=== PATIENT | female | born 1995 | race Caucasian/White ===

== ENCOUNTER → 2016-09-25 | Day surgery (SDC) | payer OTHER ==
[2016-09-22 12:53] VITALS: BMI 33.5
[2016-09-25 11:03] VITALS: TEMP 97.8
[2016-09-25 11:12] LABS: INR 1.12 (0.82-1.09); PROTHROMBIN TIME (PATIENT) 12.3 SEC (9.98-11.88)
[2016-09-25 11:46] LABS: BASOPHIL 0.5 % (0-2.0); MCH 26.4 pg (25.7-33.7); MCHC 32.5 g/dl (32.0-36.0); MEAN CELL VOLUME 81.2 fl (80-96); MEAN PLT VOLUME 7.9 fl (7.5-11.1); NEUTROPHILS 58.4 % (42.8-82.8); PLATELET COUNT 380 K/MM3 (134-434); RDW 15.4 % (11.6-15.6); WHITE BLOOD COUNT 12.1 K/mm3 (4.0-10.0)
[2016-09-25 16:01] LABS: GLUCOSE,CSF 54 mg/dL (50-80)
[2016-09-25 16:49] VITALS: BP 103/72; PULSE 88
[2016-09-25 17:40] LABS: CSF COLOR COLORLESS
[2016-09-25 17:41] LABS: CSF APPEARANCE CLEAR; CSF RBC 0 /mm3
== END | disposition home or self-care (01) ==
LOC: JRADIR 10:07
PROVIDERS: ATTEND Psychiatry & Neurology Neurology
PROC: 009U3ZX Drainage of Spinal Canal, Percutaneous Approach, Diagnostic (ICD-10-PCS; principal; 2016-09-25)
PROC: 009Y3ZX Drainage of Lumbar Spinal Cord, Percutaneous Approach, Diagnostic (ICD-10-PCS; 2016-09-25)
DX: G44.89 Other headache syndrome (principal)
CPT/HCPCS: 36415; 62272; 76098-TC; 77002-TC; 82945; 84157; 84702; 85025; 85610; 87899; 89050

== ENCOUNTER 2016-09-27 13:27 | Emergency (ER) | payer OTHER ==
[2016-09-27 13:34] VITALS: BP 147/57; PULSE 90; TEMP 98; BMI 33.5
--- NOTE | 2016-09-27 14:47 | PDOC ---
History of Present Illness - General History Source: Patient Exam Limitations: No Limitations - History of Present Illness Initial Comments: 09/27/16 15:07 The patient is a 20 year old female, with a significant past medical history of IIH and OCD who presents to the emergency department with neck, back, and head pain. The patient was sent by her PMD for possible admission. The patient ranks her pain a 10/10 in pain intensity. She reports having a spinal tap (fluoro guided LP) on sunday secondary her IIH. The patient reports having no significant pain after the LP yesterday, with the development of constant head pain yesterday. She reports her pain now travels down her spine and into her head/back. She reports having chills and nausea due to the severity of the pain. She reports taking tylenol with no alleviation of her pain. She denies recent fevers, headache or dizziness. She denies recent vomit, diarrhea or constipation. She denies any recent travel. Allergies: NKA Past surgical history: None reported. Social history: Nonsmoker. Denies EtOH use and drug use. Primary Care Physician: <Qasim Nixon - Last Filed: 09/27/16 15:07> <Sunil Aleman - Last Filed: 09/27/16 16:50> - General Chief Complaint: Pain Stated Complaint: SENT BY PCP ADMISSION Time Seen by Provider: 09/27/16 14:46 Past History <Qasim Nixon - Last Filed: 09/27/16 15:07> - Past Medical History Anemia: Yes Cardiac Disorders: (MURMUR) GI Disorders: Yes (GERD) - Psycho/Social/Smoking Cessation Hx Anxiety: No Suicidal Ideation: No Smoking History: Never smoked Have you smoked in the past 12 months: No If you are a former smoker, when did you quit?: 6MONTHS AGO 'Breaking Loose' booklet given: 09/25/16 Hx Alcohol Use: No Drug/Substance Use Hx: No Substance Use Type: None <Sunil Aleman - Last Filed: 09/27/16 16:50> - Past Medical History Allergies/Adverse Reactions: Allergies Allergy/AdvReac Type Severity Reaction Status Date / Time No Known Drug Allergies Allergy Verified 09/27/16 13:34 Home Medications: Ambulatory Orders Butalb/Acetaminophen/Caffeine [Fioricet 50-300-40 mg Capsule] 1 - 2 cap PO QID PRN #30 capsule MDD 6 capsules 09/27/16 Review of Systems - Review of Systems Constitutional: Yes: Chills. No: Fever HEENTM: No: Recent change in vision, Double Vision Respiratory: No: Cough, Shortness of Breath Cardiac (ROS): No: Chest Pain ABD/GI: No: Nausea, Vomiting Musculoskeletal: Yes: Muscle Pain Neurological: Yes: Headache All Other Systems: Reviewed and Negative <Sunil Aleman - Last Filed: 09/27/16 16:50> *Physical Exam - Vital Signs Last Vital Signs Temp Pulse Resp BP Pulse Ox 98.0 F 90 20 147/57 98 09/27/16 13:31 09/27/16 13:31 09/27/16 13:31 09/27/16 13:31 09/27/16 13:31 - Physical Exam Comments: 09/27/16 15:08 GENERAL: The patient is awake, alert, and fully oriented, in no acute distress. HEAD: Normal with no signs of trauma. EYES: Pupils equal, round and reactive to light, extraocular movements intact, sclera anicteric, conjunctiva clear with no pallor. ENT: Ears normal, nares patent, oropharynx clear without exudates. Moist mucous membranes. No nystagmus. BACK: Incision site clean dry and intact. No erythema no active bleeding NECK: Normal range of motion, supple without lymphadenopathy, JVD, or masses. LUNGS: Breath sounds equal, clear to auscultation bilaterally. No wheeze/ crackles. HEART: Regular rate and rhythm, normal S1 and S2 without murmur or rub. ABDOMEN: Soft/nontender/nondistended. BS wnl. No guarding or rebound. No palpable masses. No hepatosplenomegaly. EXTREMITIES: Normal range of motion, no edema. No clubbing or cyanosis. No cords , erythema, or tenderness. PSYCH: Normal mood, normal affect. SKIN: Warm, Dry, normal turgor, no rashes or lesions noted. NEURO: Mental status: The patient is alert and oriented x3. Cranial nerves: Cranial nerves II through XII are intact Motor: The upper extremities are 5 over 5 in all muscle groups. The lower extremities are 5 over 5 in all muscle groups. No pronator drift. Sensation: Sensation is intact to light touch throughout. Cerebellar: Finger-finger- nose is normal in both upper extremities. Heel-knee- jacobo is normal in both lower extremities. Reflexes: 2+ and symmetric in the upper and lower extremities. Gait: Normal. Heel and toe walking are normal. Tandem gait is normal. <AndersonQasim Avilez - Last Filed: 09/27/16 15:07> - Vital Signs Last Vital Signs Temp Pulse Resp BP Pulse Ox 98.0 F 90 20 147/57 98 09/27/16 13:31 09/27/16 13:31 09/27/16 13:31 09/27/16 13:31 09/27/16 13:31 <Sunil Aleman - Last Filed: 09/27/16 16:50> ED Treatment Course - LABORATORY CBC & Chemistry Diagram: 09/27/16 15:50 09/27/16 15:50 <Sunil Aleman - Last Filed: 09/27/16 16:50> Medical Decision Making - Medical Decision Making 09/27/16 15:35 A portion of this note was documented by scribe services under my direction. I have reviewed the details of the note, within reason, and agree with the documentation with the following case summary and management plan written by me. Healthy 20y/o F with recent onset of headaches in the last few months, evaluated by ophtho and neuro Dr. Ruiz with normal CT and MRI imaging, s/p fluoro-guided LP 2d ago (uncomplicated, normal results in EMR) presents now sent by Dr. Ruiz with suspicion of post-LP headache. Pt with back pain ranging from neck to lower back, associated with chills, and also with diffuse [place] worse with standing/sitting up and relieved with lying flat. no photophobia, no n/v/fever. Afebrile Exam is nonfocal, neurologically intact, procedure site without evidence of infection or swelling or hematoma 20-year-old female 2 days status post lumbar puncture with positional headache and back pain. Neurologically intact, generally well-appearing, sent here for possible blood patch given suspicion for post LP headache. Will hydrate, trial Reglan. Discussed with Dr. Varela (performed procedure): agrees with involved Anesthesia. Discussed with Anesthesia, will evaluate the patient in the ER for blood patch. 09/27/16 16:31 Seen by anesthesia, pt and mother opt to defer blood patch at this time. Given fioricet and will attempt conservative management at home then return if symptoms persist. Remains neuro intact. Will review case with Dr. Ruiz, feels back pain is also very consistent with post-LP headache, and in the absence of focal findings does not need spine imaging. Still recommends blood patch strongly, so he is speaking to patient and mom now. 09/27/16 16:40 Patient still declining blood patch. Dr. Ruiz recommends d/c on fioricet and he will f/u with them as oupt. Understand return criteria. <Sunil Aleman - Last Filed: 09/27/16 16:50> *DC/Admit/Observation/Transfer - Attestations Scribe Attestion: 09/27/16 15:08 Documentation prepared by Qasim Nixon, acting as medical social consultant for Sunil Aleman MD. <Qasim Nixon - Last Filed: 09/27/16 15:07> <Sunil Aleman - Last Filed: 09/27/16 16:50> Diagnosis at time of Disposition: Post lumbar puncture headache - Discharge Dispostion Disposition: HOME Condition at time of disposition: Stable - Prescriptions Prescriptions: Butalb/Acetaminophen/Caffeine [Fioricet 50-300-40 mg Capsule] 1 - 2 cap PO QID PRN #30 capsule MDD 6 capsules PRN Reason: Headache - Referrals Referrals: Tino Leblanc MD [Primary Care Provider] - Ole Ruiz DO [Staff Physician] - - Patient Instructions Printed Discharge Instructions: DI for Post-Spinal Puncture Headache Additional Instructions: Activity as tolerated. Stay well hydrated. As discussed, your symptoms are most consistent with post lumbar puncture headache. Take Fioricet as prescribed as needed. If symptoms persist, the blood patch we discussed may be necessary, so return to the ED. Continue your medications as previously prescribed by your physician. You should follow up with Dr. Ruiz as soon as possible regarding today's emergency department visit. Return to the emergency department for any new or concerning symptoms, particularly persistent or worsening headache, fevers or chills, vomiting or confusion, focal weakness, redness or swelling at the puncture site.
[2016-09-27] MEDS ORDERED: METOCLOPRAMIDE HCL INJECTION 10 MG/2 ML VIAL IVPB ONE (15:08)
[2016-09-27] MEDS ORDERED: SODIUM CHLORIDE 1,000 ML IV ONE (15:08)
[2016-09-27] MEDS ORDERED: ACETAMINOPHEN 1000 MG/100 ML VIAL (NON FORMULARY) IVPB ONE (15:23)
[2016-09-27] MEDS ORDERED: METOCLOPRAMIDE HCL INJECTION 10 MG/2 ML VIAL ONE (15:38)
[2016-09-27] MEDS ORDERED: ACETAMINOPHEN INJECTION 100 ML IVPB ONE (15:38)
[2016-09-27] MEDS ORDERED: ACETAMINOPHEN/CAFFEINE/BUTALBITAL 1 TAB PO ONE (16:04)
[2016-09-27] MEDS ORDERED: LACTATED RINGERS SOLUTION 1,000 ML IV SCH (16:15)
[2016-09-27 16:20] LABS: BASOPHIL 0.4 % (0-2.0); EOSINOPHIL 0.6 % (0-4.5); MCH 26.8 pg (25.7-33.7); MCHC 33.1 g/dl (32.0-36.0); MEAN PLT VOLUME 7.9 fl (7.5-11.1); NEUTROPHILS 75.3 % (42.8-82.8); PLATELET COUNT 385 K/MM3 (134-434); RDW 15.1 % (11.6-15.6); WHITE BLOOD COUNT 10.7 K/mm3 (4.0-10.0)
[2016-09-27] MEDS ORDERED: ACETAMINOPHEN/CAFFEINE/BUTALBITAL 1 TAB ONE (16:22)
[2016-09-27 17:08] LABS: INR 1.13 (0.82-1.09); PROTHROMBIN TIME (PATIENT) 12.5 SEC (9.98-11.88)
[2016-09-27] MEDS ORDERED: LACTATED RINGERS SOLUTION 1,000 ML IV ONE (17:09)
[2016-09-27 17:18] LABS: ALBUMIN 3.4 g/dl (3.4-5.0); ALK PHOS 77 U/L (45-117); ANION GAP 10 (8-16); BILIRUBIN,TOTAL 0.4 mg/dL (0.2-1.0); CALCIUM 8.8 mg/dL (8.5-10.1); CO2 25 mmol/L (21-32); CREATININE 0.5 mg/dL (0.55-1.02); GLUCOSE,RANDOM 104 mg/dL (74-106); SGOT/AST 8 U/L (15-37); SGPT/ALT 16 U/L (12-78); TOT PROT 6.5 g/dl (6.4-8.2)
== END 2016-09-27 18:48 | disposition home or self-care (01) ==
LOC: JER 13:27
PROC: 3E033NZ Introduction of Analgesics, Hypnotics, Sedatives into Peripheral Vein, Percutaneous Approach (ICD-10-PCS; principal; 2016-09-27)
PROC: 3E0337Z Introduction of Electrolytic and Water Balance Substance into Peripheral Vein, Percutaneous Approach (ICD-10-PCS; 2016-09-27)
PROC: 3E033GC Introduction of Other Therapeutic Substance into Peripheral Vein, Percutaneous Approach (ICD-10-PCS; 2016-09-27)
DX: G97.1 Other reaction to spinal and lumbar puncture (principal); R01.1 Cardiac murmur, unspecified; K21.9 Gastro-esophageal reflux disease without esophagitis; Z87.891 Personal history of nicotine dependence
CPT/HCPCS: 36415; 80053; 85025; 85610; 96361; 96374; 96375; 99284-25

== ENCOUNTER 2016-11-29 07:34 | Day surgery (SDC) | payer OTHER ==
[2016-11-21 14:40] VITALS: BMI 29.8
[2016-11-29] MEDS ORDERED: PROPOFOL 20 ML ONE ×2 (07:38→09:03)
[2016-11-29 09:45] VITALS: TEMP 97.6
[2016-11-29 10:06] VITALS: BP 107/65; PULSE 67
--- NOTE | 2016-11-30 15:57 | PATH ---
Surgical Pathology Report Patient Name: DOMENICA HARDEN [facility]. Rec. #: [id number] /Age/Gender: 1995 (Age: 21) / F Account: [id number] Location: [facility]-ENDOSCOPY Taken: 11/29/2016 Received: 11/29/2016 Reported: 11/30/2016 Physicians: Glen Mccormick M.D. Specimen(s) Received A: BX DUODENUM B: BX ANTRUM C: BX ESOPHAGUS Clinical History Dysphagia Rule out celiac, rule out H. Pylori Gastritis, rule out eosinophilic esophagitis Final Diagnosis A. DUODENUM, BIOPSY: DUODENAL MUCOSA WITH NO PATHOLOGIC FINDINGS. Note: Features suggestive of celiac disease are not identified in this biopsy. B. ANTRUM, BIOPSY: MILD CHRONIC GASTRITIS. IMMUNOSTAIN IS NEGATIVE FOR H. PYLORI ORGANISMS. C. ESOPHAGUS, BIOPSY: ESOPHAGEAL (SQUAMOUS) MUCOSA WITH NO PATHOLOGIC FINDINGS. NO COLUMNAR EPITHELIUM/INTESTINAL METAPLASIA IS IDENTIFIED. Electronically Signed Lali Casillas M.D. Gross Description A. Received in formalin, labeled "duodenum" are 3 ketih, irregular portions of soft tissue ranging from 0.4-0.5 cm. in greatest dimension. The specimens are submitted in toto in one cassette. B. Received in formalin, labeled "antrum" are 2 keith, irregular portions of soft tissue measuring 0.5 and 0.7 cm. in greatest dimension. The specimens are submitted in toto in one cassette. C. Received in formalin, labeled "esophagus" are 2 keith, irregular portions of soft tissue averaging 0.4 cm. in greatest dimension. The specimens are submitted in toto in one cassette. 11/29/2016 saudi11/29/2016
== END 2016-11-29 10:15 | disposition home or self-care (01) ==
LOC: FASU-ENDO 07:34
PROVIDERS: ATTEND Internal Medicine Gastroenterology
PROC: 0DB68ZX Excision of Stomach, Via Natural or Artificial Opening Endoscopic, Diagnostic (ICD-10-PCS; 2016-11-29)
PROC: 0DB58ZX Excision of Esophagus, Via Natural or Artificial Opening Endoscopic, Diagnostic (ICD-10-PCS; 2016-11-29)
PROC: 0D758ZZ Dilation of Esophagus, Via Natural or Artificial Opening Endoscopic (ICD-10-PCS; principal; 2016-11-29 09:07)
PROC: 0DB98ZX Excision of Duodenum, Via Natural or Artificial Opening Endoscopic, Diagnostic (ICD-10-PCS; 2016-11-29 09:07)
DX: R13.10 Dysphagia, unspecified (principal); K31.89 Other diseases of stomach and duodenum
CPT/HCPCS: 84703; 88305-TC; 88342-TC